=== PATIENT | female | born 1940 | race Caucasian/White ===

== ENCOUNTER 2017-04-02 21:23 | Inpatient (IN) | payer OTHER ==
[~2017-04-02] VITALS: Ht 157.5 cm; Wt 58.0 kg
[2017-04-02] MEDS ORDERED: OMNIPAQUE 350 MG/ML, 100ML BOTTLE ONE (21:50)
[2017-04-02] MEDS ORDERED: SODIUM CHLORIDE 0.9% 1,000ML IVBOLUS ONE (22:00)
[2017-04-02] MEDS ORDERED: ONDANSETRON 2MG/ML, 2ML IVPush ONE (22:00)
[2017-04-02] MEDS ORDERED: MORPHINE SULFATE 4 MG/ML, 1ML IVPush PRN (22:00)
[2017-04-02 22:21] LABS: ASPARTATE AMINO TRANSFERASE 32 U/L (15-37); BLOOD UREA NITROGEN 12 mg/dL (7-18)
[2017-04-02] MEDS ORDERED: ONDANSETRON 2MG/ML, 2ML ONE (22:26)
[2017-04-02] MEDS ORDERED: MORPHINE SULFATE 4 MG/ML, 1ML ONE (22:26)
[2017-04-02 22:58] LABS: IS PT STATUS REG ER OR PRE ER? YES
[2017-04-02] MEDS ORDERED: LEVO100T5 PO (23:01)
[2017-04-02] MEDS ORDERED: LISI-167 PO (23:02)
[2017-04-02] MEDS ORDERED: GLYC2TAB13 PO (23:05)
[2017-04-03] MEDS ORDERED: SODIUM CHLORIDE 0.9% 1,000 ML IV ONE (00:26)
[2017-04-03] MEDS: SODIUM CHLORIDE 0.9% 1,000 ML IV SCH ×2 (00:29→13:33)
[2017-04-03] MEDS ORDERED: HYDROmorphone 2 MG/ML, 1ML IVPush PRN ×2 (00:30→12:30)
[2017-04-03] MEDS ORDERED: hydrALAzine 20 MG/ML, 1ML IVPush PRN (00:30)
[2017-04-03] MEDS ORDERED: ONDANSETRON 2MG/ML, 2ML IVPush PRN ×2 (00:30)
[2017-04-03] MEDS ORDERED: MORPHINE SULFATE 4 MG/ML, 1ML IVPush PRN (00:30)
[2017-04-03 02:06] VITALS: BP 107/69
[2017-04-03] MEDS: DIPHENHYDRAMINE 25 MG CAPSULE PO PRN (04:47)
[2017-04-03 08:04] VITALS: BP 103/64
[2017-04-03] MEDS: LEVOTHYROXINE SODIUM 200 MCG INJ IVPush SCH (11:03)
[2017-04-03] MEDS: MORPHINE SULFATE 4 MG/ML, 1ML IVPush PRN (11:57)
[2017-04-03 13:45] VITALS: BP 122/68
[2017-04-03] MEDS ORDERED: BISACODYL 10 MG SUPP PR ONE (14:30)
[2017-04-03] MEDS: GOLYTELY 4,000ML ORAL.SOL PO ONE (14:30)
[2017-04-03] MEDS ORDERED: GOLYTELY 4,000ML ORAL.SOL PO ONE (15:30)
[2017-04-03] MEDS: D5%-0.9% NACL 1,000 ML IV SCH (17:06)
[2017-04-03 18:32] VITALS: BP 130/81
[2017-04-04] MEDS: MORPHINE SULFATE 4 MG/ML, 1ML IVPush PRN ×7 (00:07→23:18)
[2017-04-04] MEDS: DIPHENHYDRAMINE 25 MG CAPSULE PO PRN (00:07)
[2017-04-04 02:17] VITALS: BP 103/60
[2017-04-04 03:08] LABS: ASPARTATE AMINO TRANSFERASE 32 U/L (15-37); BLOOD UREA NITROGEN 5 mg/dL (7-18)
[2017-04-04] MEDS: D5%-0.9% NACL 1,000 ML IV SCH ×3 (05:18→23:17)
[2017-04-04 06:30] VITALS: BP 117/71
[2017-04-04] MEDS ORDERED: POTASSIUM CHLORIDE 20 MEQ TAB.ER.PRT PO ONE (08:30)
[2017-04-04] MEDS: LEVOTHYROXINE SODIUM 200 MCG INJ IVPush SCH (09:00)
[2017-04-04 13:50] VITALS: BP 136/79
[2017-04-04 19:44] VITALS: BP 125/74
[2017-04-05 02:52] VITALS: BP 127/77
[2017-04-05] MEDS: MORPHINE SULFATE 4 MG/ML, 1ML IVPush PRN ×2 (04:07→08:54)
[2017-04-05 07:35] VITALS: BP 116/70
[2017-04-05] MEDS ORDERED: LEVOTHYROXINE 100 MCG INJ IVPush SCH (09:00)
[2017-04-05] MEDS: D5%-0.9% NACL 1,000 ML IV SCH (10:53)
[2017-04-05 12:52] VITALS: BP 125/72
[2017-04-05] MEDS ORDERED: MIDAZOLAM 1 MG/ML, 2ML ONE (13:20)
[2017-04-05] MEDS ORDERED: FENTANYL PF 250 MCG/5ML ONE (13:21)
[2017-04-05] MEDS ORDERED: BUPIVACAINE/PF-EPI 0.5% 1:200K ONE (13:22)
[2017-04-05] MEDS ORDERED: ONDANSETRON 2MG/ML, 2ML ONE (14:13)
[2017-04-05] MEDS ORDERED: GLYCOPYRROLATE 0.2MG/1ML ONE (14:13)
[2017-04-05] MEDS ORDERED: NEOSTIGMINE 1 MG/ML, 10ML ONE (14:13)
[2017-04-05] MEDS ORDERED: ROCURONIUM 10 MG/ML ONE (14:13)
[2017-04-05] MEDS ORDERED: DEXAMETHASONE 4 MG/ML, 1ML ONE (14:13)
[2017-04-05] MEDS ORDERED: PROPOFOL 10 MG/ML, 20ML ONE (14:13)
[2017-04-05] MEDS ORDERED: CEFAZOLIN 1,000 MG ONE (14:13)
[2017-04-05] MEDS ORDERED: OXYcodone 5 MG/5 ML ORAL.SOL UDC PO PRN (14:30)
[2017-04-05] MEDS ORDERED: MEPERIDINE/PF 25MG/0.5ML IVPush PRN (14:30)
[2017-04-05] MEDS ORDERED: PROMETHAZINE 25 MG/ML, 1ML IV PRN (14:30)
[2017-04-05] MEDS ORDERED: FENTANYL PF 100 MCG/2ML IV PRN (14:30)
[2017-04-05] MEDS ORDERED: ONDANSETRON 2MG/ML, 2ML IVPush PRN (14:30)
[2017-04-05] MEDS ORDERED: METOCLOPRAMIDE 5 MG/ML, 2ML IV PRN (14:30)
[2017-04-05] MEDS ORDERED: hydrALAzine 20 MG/ML, 1ML IV PRN (14:30)
[2017-04-05] MEDS ORDERED: LABETALOL 5MG/ML, 20ML IV PRN (14:30)
[2017-04-05] MEDS ORDERED: HYDROmorphone 2 MG/ML, 1ML ONE (15:16)
[2017-04-05] MEDS ORDERED: OXYcodone 5 MG/5 ML ORAL.SOL UDC ONE (15:17)
[2017-04-05] MEDS: HYDROmorphone 1 MG/ML, 1ML IV PRN ×2 (15:20→15:37)
[2017-04-05] MEDS ORDERED: MEPERIDINE/PF 25MG/0.5ML ONE (15:28)
[2017-04-05 20:47] VITALS: BP 100/60
[2017-04-05] MEDS ORDERED: CETIRIZINE 10 MG TABLET PO PRN (21:30)
[2017-04-05] MEDS: DIPHENHYDRAMINE 25 MG CAPSULE PO PRN (21:35)
[2017-04-06] MEDS: D5%-0.9% NACL 1,000 ML IV SCH (01:40)
[2017-04-06 02:05] VITALS: BP 131/57
[2017-04-06 05:10] LABS: BLOOD UREA NITROGEN 8 mg/dL (7-18)
[2017-04-06] MEDS ORDERED: LEVOTHYROXINE 100 MCG TABLET PO SCH (06:00)
[2017-04-06 07:20] VITALS: BP 114/71
[2017-04-06] MEDS ORDERED: LISINOPRIL 10 MG TABLET PO SCH (09:00)
[2017-04-06 13:15] VITALS: BP 104/66
== END 2017-04-06 18:50 | disposition home or self-care (01) | DRG 393 ==
LOC: ED 23:09 → EDIP 04-03 00:26 → UNDOADMIN 04-03 00:32 → 3NW 04-03 01:11
PROVIDERS: ADMIT Internal Medicine; ATTEND Internal Medicine
PROC: 0DBV4ZX Excision of Mesentery, Percutaneous Endoscopic Approach, Diagnostic (ICD-10-PCS; principal; 2017-04-03)
DX: K65.4 Sclerosing mesenteritis (principal); E43 Unspecified severe protein-calorie malnutrition; K56.60 Unspecified intestinal obstruction; E87.1 Hypo-osmolality and hyponatremia; E03.9 Hypothyroidism, unspecified; I10 Essential (primary) hypertension; K59.00 Constipation, unspecified; K66.8 Other specified disorders of peritoneum; M81.0 Age-related osteoporosis without current pathological fracture; E78.00 Pure hypercholesterolemia, unspecified; G62.9 Polyneuropathy, unspecified; Z90.49 Acquired absence of other specified parts of digestive tract; Z79.899 Other long term (current) drug therapy; Z68.23 Body mass index [BMI] 23.0-23.9, adult; E78.5 Hyperlipidemia, unspecified
CPT/HCPCS: 36415; 74000; 74177; 76700; 80048; 80053; 81001; 82040; 82378; 83690; 83735; 84484; 85025; 86301; 86304; 87086; 88304; 88331; 88341; 88342; 96361; 96374; 96375; C1729; J0690; J1100; J1170; J2175; J2250; J2405; J2704; J2710; J3010; J3490; J7042; Q9967; G0461; J7030; Q0163